=== PATIENT | male | born 1995 | race Caucasian/White ===

== ENCOUNTER 2021-10-10 17:54 | Emergency (ER) | payer BC ==
[2021-10-10] MEDS ORDERED: Bacitracin Oint 1 GM U/D Packet TOP ONE (17:55)
[2021-10-10] MEDS ORDERED: Lidocaine 1% PF 2 ML SDV INJECT ONE (18:42)
[2021-10-10] MEDS ORDERED: Acetaminophen/HYDROcodone 325-5 MG Tab PO ONE (18:57)
[2021-10-10] MEDS ORDERED: Cephalexin 500 MG Cap PO ONE (18:57)
[2021-10-10] MEDS: Diphtheria,Pertussis(Acell),Tetanus Vaccine 0.5 ML Syringe IM ONE ×2 (19:10→19:18)
== END 2021-10-10 19:25 | disposition home or self-care (01) ==
LOC: MW.ED 17:54
DX: S81.831A Puncture wound without foreign body, right lower leg, initial encounter (principal); S81.031A Puncture wound without foreign body, right knee, initial encounter; W34.00XA Accidental discharge from unspecified firearms or gun, initial encounter
CPT/HCPCS: 73562; 99284; A9270; 90715; 99283